=== PATIENT | male | born 1990 | race Caucasian/White ===

== ENCOUNTER 2016-10-09 01:45 | Emergency (ER) | payer OTHER ==
[~2016-10-09 01:45] MED LIST: AMOX500C2 PO; IBUP-1827 PO; OXYC-466 PO
--- NOTE | 2016-10-09 02:00 | ED.REPORT ---
HPI-Dental/Mouth Prob Date of Service Oct 09, 2016 ED Provider: Jaclyn Horner MD Pt is a 26 y.o. male who presents to the ED c/o right sided dental pain onset yesterday. Pt denies any related trauma. He also denies fever, chills, SOB, and difficulty swallowing. Nursing Notes Stated Complaint: DENTAL PAIN Chief Complaint: Dental Nursing Notes Reviewed: Yes Allergies: Coded Allergies: No Known Allergies (Verified , 05/15/14) Scheduled Amoxicillin (Amoxicillin) 500 Mg Capsule 500 MG PO TID Penicillin V Potassium (Penicillin V Potassium) 500 Mg Tablet 500 MG PO TID Scheduled PRN Ibuprofen (Ibuprofen) 600 Mg Tablet 600 MG PO QID PRN PRN For Pain oxyCODONE-Acetaminophen 10-325 mg (oxyCODONE-Acetaminophen 10-325 mg) 1 Each Tablet 1 TABLET PO Q4H PRN PRN For Pain General Time Seen by MD: 01:54 Chief Complaint Mouth pain, Tooth pain Hx Obtained From: Patient Arrived By: Walk-in Onset Occurred: Yesterday Symptom Duration: Since onset Location: : Tooth lower R molar Quality: Painful Severity: Current: Severe Past Medical History Past Medical History Notes: Extensive work up for headache with a negative LP and CT head in 2004. Past Medical History One seizure as a child not on medications Past Surgical History None Smoking History Current Every Day Smoker Social History Homeless Alcohol Use: Denies alcohol use Drug Use: Denies drug use Ambulatory Status Independent Review of Systems Constitutional: Denies: Chills, Fever Ears / Nose / Throat: Reports: Mouth pain, Toothache, Denies: Throat swelling Respiratory: Denies: Shortness of breath Complete sys rev & neg: except as marked. Physical Exam Initial Vital Signs Vital Signs (First) Date Time Temp Pulse Resp B/P Pulse Ox O2 Delivery O2 Flow Rate FiO2 10/09/16 02:06 36.8 102 20 158/99 98 Room Air Initial VS: Reviewed Head / Eyes: Atraumatic, Normocephalic Abdomen / GI: No distention Extremities: Vascular intact, Neuro intact Skin: Warm, Dry, No cyanosis Neurologic: Alert, Oriented, Nonfocal Psychiatric: Mood/affect normal, Behavior normal, Normal thought content ENT: Atraumatic, Airway patent, No facial swelling Dental / Gums: Positive: Dental caries present, Dentition poor, Tender to percussion, Negative: Dental abscess Trauma - ENT Specific: Negative: Dentition fracture... Tenderness to percussion to 2 posterior molars on right mandible without obvious trauma. Soft sublingual and submental spaces. Neck: Atraumatic General/Constitutional: Awake, Alert Appearance / Presentation: Positive: Hygiene poor, Obese Disheveled Malodorous Respiratory / Chest: Atraumatic, Breath sounds NL, Breath sounds = bilat, No respiratory distress Cardiovascular: Regular rhythm, Heart sounds NL Heart Rate / Rhythm: Positive: Tachycardia Re-Eval/Medical Decision Med Decision/Clinical Course 26-year-old male here with dental pain. Differential diagnosis includes but is not limited to apical abscess versus other dental abscess versus cracked tooth versus exposed nerve root. Patient has soft sublingual and submental spaces, she has no sign of airway compromise. There is no palpable fluctuance to be opened. He was given penicillin and ibuprofen in the emergency department, discharged with same, and advised to follow-up with his dentist. He is aware and amenable to discharge and has been given strict return precautions. Source of Hx: Old records Re-Evaluation/Progress : Time of Eval: 02:06 Re-Evaluation/Progress Note: Physical exam performed. Discussed plan for discharge, pt understands and agrees with plan. Counseled Regarding: Diagnosis, Need for follow-up, When/why to return to ED Discharge & Departure Primary Impression: Pain, dental Disposition: Home Discharge Condition All VS Reviewed: Yes Condition: Improved Patient Instructions: Dental Abscess (ED), Dental Caries (ED) Additional Instructions: Thank you for entrusting us with your care today. You were seen here today for dental pain, I did not see an abscess at this time. I will prescribe you a 7 day course of Penicillin, your first dose was administered in the emergency department. Take 800mg of ibuprofen every 8 hours as needed for pain. I recommend you follow-up with your primary care provider and dentist next week. Seek care if you develop a fever, facial swelling, difficulty swallowing or breathing, or any new or worsening symptoms. Referrals: Abner Mnote MD (PCP) [place] Attestation Portions of this note were transcribed by Janice Tirado. I, Dr. Horner personally performed the history, physical exam and medical decision-making; I reviewed and confirmed the accuracy of the information in the transcribed note. Signed by : Mulugeta Loving, 10/09/16 and 0212 copies to: Abner Monte MD, Rebecca A MD Oct 09, 2016 02:00 JANICE TIRADO Oct 09, 2016 02:04
[2016-10-09] MEDS ORDERED: PENI500T PO (02:05)
[2016-10-09 02:06] VITALS: BP 158/99; PULSE 102; RESP 20; O2SAT 98
[2016-10-09 02:09] VITALS: BP 158/99; PULSE 102; RESP 20; O2SAT 98
== END 2016-10-09 02:10 | disposition home or self-care (01) ==
LOC: SED 01:45
DX: K08.89 Other specified disorders of teeth and supporting structures (principal); F17.200 Nicotine dependence, unspecified, uncomplicated; Z59.0 Homelessness